=== PATIENT | male | born 1940 | race Caucasian/White ===

== ENCOUNTER 2017-01-30 14:20 | Inpatient (IN) ==
--- NOTE | 2017-02-01 14:02 | Internal Med History&Physical ---
Date of Encounter: 02/01/17 Time of Encounter: 13:52 Assessment and Plan (1) History of total hip replacement Current visit: Yes Status: Acute Patient is here for rehabilitation status post total hip Qualifiers: Laterality: right Qualified Code(s): Z96.641 - Presence of right artificial hip joint (2) HTN (hypertension) Current visit: No Status: Chronic Blood pressure is well controlled Qualifiers: Hypertension type: essential hypertension Qualified Code(s): I10 - Essential (primary) hypertension (3) Hyperlipidemia Current visit: No Status: Chronic By history Qualifiers: Hyperlipidemia type: unspecified Qualified Code(s): E78.5 - Hyperlipidemia , unspecified (4) Arthritis of hip Current visit: No Status: Acute Patient had arthritis in the hips which is the reason for the surgical repair (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 Admitted From: Hospital to Hospital Transfer Plans for Post Hospital Care: Home History of present illness: Mr. Zamudio is a 76 year old male Patient is here for postop care and rehabilitation after total hip replacement Past Med Surg Social Fam HX - Past Medical History Medical history: arthritis, hyperlipidemia, hypertension, other Psychiatric history: no psych history - Past Surgical History Surgical History: other - Social History Smoking Status: Never smoker Smokeless Tobacco Status: No Alcohol use: none Drug use: none Internal Medicine - H&P: Meds Atenolol [Tenormin] 100 mg PO DAILY 09/20/15 [History] Finasteride [Proscar] 5 mg PO HS 09/20/15 [History] Tamsulosin [Flomax] 0.4 mg PO HS 09/20/15 [History] Aspirin Enteric Coated [Aspirin EC] 325 mg PO DAILY #21 tablet. 01/28/17 [Rx] OxyCODONE Immed Rel [Roxicodone 5 MG] 5 mg PO Q6HR PRN 02/01/17 [History] OxyCODONE Immed Rel [Roxicodone 5 MG] 10 mg PO Q6HR PRN 02/01/17 [History] Allergies atorvastatin Adverse Reaction (Mild, Verified 01/29/17 08:35) Muscle Pain All Systems PM: A 10-system review of systems was performed and is negative for pertinent findings except as documented above in the HPI. - Head Head exam: Present: atraumatic, normal inspection ( ), normocephalic - Neck Neck exam general surgery: Present: supple, trachea midline. Absent: lymphadenopathy - Respiratory Respiratory exam: Present: CTAB. Absent: accessory muscle use, rales, rhonchi, wheezes - Cardiovascular Cardiovascular exam: Present: RRR, +S1, +S2. Absent: diastolic murmur, gallop, rubs, systolic murmur Internal Med - H&P Results - Labs Labs: Pending
[2017-02-01] MEDS ORDERED: Aspirin Enteric Coated 81 MG Tablet PO SCH (14:30)
[2017-02-01] MEDS: *HR* OxyCODONE Immed Rel 5 MG TABLET PO PRN (16:39)
[2017-02-01] MEDS: Finasteride 5 MG TABLET PO SCH (21:42)
[2017-02-02] MEDS: *HR* OxyCODONE Immed Rel 5 MG TABLET PO PRN ×4 (00:03→22:26)
[2017-02-02] MEDS: Aspirin 325 MG TABLET PO SCH ×2 (08:58→12:51)
[2017-02-02] MEDS: Ondansetron ODT 4 MG TAB.RAPDIS SL PRN ×2 (12:14→22:26)
[2017-02-02] MEDS: Finasteride 5 MG TABLET PO SCH (22:26)
[2017-02-02] MEDS: MOM Conc 10 ML UD.LIQ PO SCH (22:26)
--- NOTE | 2017-02-02 22:53 | Internal Med Progress Note ---
Date of Encounter: 02/02/17 Time of Encounter: 22:51 - Assessment and plan (1) History of total hip replacement Current Visit: Yes Status: Acute Assessment and plan: We will continue to monitor pain. PT OT working on gait, transfer, endurance balance. Lovenox for DVT. Qualifiers: Laterality: right Qualified Code(s): Z96.641 - Presence of right artificial hip joint (2) Insomnia Current Visit: Yes Status: Acute Assessment and plan: Well order medications as needed Qualifiers: Insomnia type: unspecified Qualified Code(s): G47.00 - Insomnia, unspecified (3) Constipation Current Visit: Yes Status: Acute Assessment and plan: We will try Mag citratetreatment Qualifiers: Constipation type: unspecified constipation type Qualified Code(s): K59.00 - Constipation, unspecified - Time Spent With Patient less than 15 minutes - Subjective Interval history: Complains of increase right hip pain postop. Oxycodone was increased. Complains of nausea. Complains of constipation. He also complains of insomnia. - Constitutional Vitals: Temp Pulse Resp BP Pulse Ox 98.1 F 57 16 124/65 97 02/02/17 19:00 02/02/17 19:00 02/02/17 19:00 02/02/17 19:00 02/02/17 19:00 General appearance: Present: A&O X 3, pleasant, no acute distress - Respiratory Respiratory exam: Present: CTAB. Absent: accessory muscle use, rales, rhonchi, wheezes - Cardiovascular Cardiovascular exam: Present: RRR, +S1, +S2. Absent: diastolic murmur, gallop, rubs, systolic murmur - GI/Abdominal GI/Abdominal exam: Present: normal bowel sounds, soft, no peritoneal signs. Absent: distended, tenderness - Expanded Lower Extremities Exam Hip exam: Present: erythema, swelling, tenderness - Incison Incision: Present: clean and dry - Neurological Exam Neurological exam: Present: CN II-XII intact, oriented X3, no focal deficits. Absent: pronater drift, facial droop, speech deficit Consult Discharge Plan - Plan Referrals: Juan Hdez MD [Primary Care Provider] -
[2017-02-03] MEDS: Aspirin 325 MG TABLET PO SCH (08:31)
[2017-02-03] MEDS: *HR* OxyCODONE Immed Rel 5 MG TABLET PO PRN ×3 (08:40→21:50)
[2017-02-03] MEDS: MOM Conc 10 ML UD.LIQ PO SCH (15:24)
[2017-02-03] MEDS: Finasteride 5 MG TABLET PO SCH (21:49)
[2017-02-04] MEDS: Aspirin 325 MG TABLET PO SCH (09:11)
[2017-02-04] MEDS: *HR* OxyCODONE Immed Rel 5 MG TABLET PO PRN ×2 (09:12→22:43)
[2017-02-04] MEDS: MOM Conc 10 ML UD.LIQ PO SCH (09:13)
--- NOTE | 2017-02-04 13:35 | Internal Med Progress Note ---
Date of Encounter: 02/04/17 Time of Encounter: 13:32 - Assessment and plan (1) History of total hip replacement Current Visit: Yes Status: Acute Assessment and plan: We will continue to monitor pain. PT OT working on gait, transfer, endurance balance. Lovenox for DVT. Qualifiers: Laterality: right Qualified Code(s): Z96.641 - Presence of right artificial hip joint (2) Insomnia Current Visit: Yes Status: Acute Assessment and plan: Improved with something for sleep Qualifiers: Insomnia type: unspecified Qualified Code(s): G47.00 - Insomnia, unspecified (3) Constipation Current Visit: Yes Status: Acute Assessment and plan: We will try Mag citratetreatment Qualifiers: Constipation type: unspecified constipation type Qualified Code(s): K59.00 - Constipation, unspecified - Time Spent With Patient less than 15 minutes - Subjective Interval history: Given laxative for constipation yesterday. Having small amount of liquid stool. Patient does not like any solid food but cookies. He states food does not taste good Complains of increase right hip pain postop. Oxycodone was increased. Complains of nausea. Complains of constipation. He also complains of insomnia. - Constitutional Vitals: Temp Pulse Resp BP Pulse Ox 97.7 F 54 18 131/62 95 02/04/17 07:22 02/04/17 07:22 02/04/17 07:22 02/04/17 07:22 02/04/17 07:22 General appearance: Present: A&O X 3, pleasant, no acute distress - Respiratory Respiratory exam: Present: CTAB. Absent: accessory muscle use, rales, rhonchi, wheezes - Cardiovascular Cardiovascular exam: Present: RRR, +S1, +S2. Absent: diastolic murmur, gallop, rubs, systolic murmur - GI/Abdominal GI/Abdominal exam: Present: normal bowel sounds, soft, no peritoneal signs. Absent: distended, tenderness - Expanded Lower Extremities Exam Hip exam: Present: erythema, swelling, tenderness Consult Discharge Plan - Plan Referrals: Juan Hdez MD [Primary Care Provider] -
[2017-02-04] MEDS: Finasteride 5 MG TABLET PO SCH (22:43)
[2017-02-05 07:14] LABS: Basophils % 0.4 %; Eosinophils # 0.6 K/mcL (0.0-0.6); Eosinophils % 6.2 %; Hematocrit 26.7 % (37.5-50.1); Hemoglobin 8.9 g/dL (12.9-16.9); Immature Granulocytes % 3.7 % (0-4); Lymphocytes # 1.1 K/mcL (0.6-4.6); Lymphocytes % 11.5 %; Mean Corpuscular HGB Conc 33.3 g/dL (31.6-35.5); Mean Corpuscular Hemoglobin 30.3 pg (28.0-33.3); Mean Corpuscular Volume 90.8 fL (83.0-100.0); Mean Platelet Volume 9.6 fL (9.4-12.4); Monocytes % 10.4 %; Neutrophils # 6.2 K/mcL (1.6-8.9); Platelet Count 177 K/mcL (140-400); Red Blood Count 2.94 M/mcL (4.19-5.50); Red Cell Distribution Width 13.8 % (11.5-14.5); Segmented Neutrophils % 67.8 %
[2017-02-05 07:19] LABS: BUN/Creatinine Ratio 24 (6-26); Blood Urea Nitrogen 16 mg/dL (8-26); Calcium 8.1 mg/dL (8.6-10.8); Carbon Dioxide 29 mEq/L (19-29); Chloride 101 mEq/L (98-109); Glucose 89 mg/dL (70-99); Osmolality,Calculated 291 (280-300); Potassium 3.6 mEq/L (3.5-4.5); Sodium 140 mEq/L (136-145); eGFR For African Americans > 60 (> 60); eGFR For Non-African Americans > 60 (> 60)
[2017-02-05] MEDS: *HR* OxyCODONE Immed Rel 5 MG TABLET PO PRN ×3 (08:03→22:51)
[2017-02-05] MEDS: MOM Conc 10 ML UD.LIQ PO SCH (08:04)
[2017-02-05] MEDS: Aspirin 325 MG TABLET PO SCH (08:04)
--- NOTE | 2017-02-05 15:14 | Internal Med Progress Note ---
Date of Encounter: 02/05/17 Time of Encounter: 15:12 - Assessment and plan (1) History of total hip replacement Current Visit: Yes Status: Acute Assessment and plan: Patient has had a total hip replacement for degenerative osteoarthritis Qualifiers: Laterality: right Qualified Code(s): Z96.641 - Presence of right artificial hip joint (2) HTN (hypertension) Current Visit: No Status: Chronic Assessment and plan: Hypertension blood pressure is well controlled Qualifiers: Hypertension type: essential hypertension Qualified Code(s): I10 - Essential (primary) hypertension (3) Hyperlipidemia Current Visit: No Status: Chronic Assessment and plan: Noted Qualifiers: Hyperlipidemia type: unspecified Qualified Code(s): E78.5 - Hyperlipidemia , unspecified (4) Arthritis of hip Current Visit: No Status: Acute Assessment and plan: The reason for the surgery (5) Post-polio syndrome Current Visit: No Status: Chronic Assessment and plan: 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 He states by the time once he is healed and noticing occurs. We have encouraged him verbally and is working with a therapist. States pain control is very adequate - Constitutional Vitals: Temp Pulse Resp BP Pulse Ox 97.4 F L 59 16 115/64 98 02/05/17 06:56 02/05/17 06:56 02/05/17 06:56 02/05/17 06:56 02/05/17 06:56 General appearance: Present: A&O X 3, pleasant, no acute distress - Head Head exam: Present: atraumatic, normal inspection, normocephalic - Neck Neck exam general surgery: Present: supple, trachea midline. Absent: lymphadenopathy - Respiratory Respiratory exam: Present: CTAB. Absent: accessory muscle use, rales, rhonchi, wheezes - Cardiovascular Cardiovascular exam: Present: RRR, +S1, +S2. Absent: diastolic murmur, gallop, rubs, systolic murmur - GI/Abdominal GI/Abdominal exam: Present: normal bowel sounds, soft, no peritoneal signs. Absent: distended, tenderness Internal Medicine: Result - Labs CBC & Chem 7: 02/05/17 06:50 02/05/17 06:50 Labs: Short CBC 02/05/17 Range/Units 06:50 WBC 9.2 (4.3-11.1) K/mcL Hgb 8.9 L (12.9-16.9) g/dL Hct 26.7 L (37.5-50.1) % Plt Count 177 (140-400) K/mcL Neutrophils # 6.2 (1.6-8.9) K/mcL BMP 02/05/17 06:50 Sodium 140 Potassium 3.6 Chloride 101 Carbon Dioxide 29 BUN 16 Creatinine 0.67 L Glucose 89 Calcium 8.1 L Lab is stable Consult Discharge Plan - Plan Referrals: Juan Hdez MD [Primary Care Provider] -
[2017-02-05] MEDS: Finasteride 5 MG TABLET PO SCH (22:51)
[2017-02-06] MEDS: *HR* OxyCODONE Immed Rel 5 MG TABLET PO PRN ×2 (05:19→13:13)
[2017-02-06] MEDS: Aspirin 325 MG TABLET PO SCH (08:57)
[2017-02-06] MEDS: MOM Conc 10 ML UD.LIQ PO SCH (08:58)
--- NOTE | 2017-02-06 14:07 | Internal Med Progress Note ---
Date of Encounter: 02/06/17 Time of Encounter: 14:04 - Assessment and plan (1) History of total hip replacement Current Visit: Yes Status: Acute Assessment and plan: Patient had total hip replacement which brought him in for rehabilitation Qualifiers: Laterality: right Qualified Code(s): Z96.641 - Presence of right artificial hip joint (2) HTN (hypertension) Current Visit: No Status: Chronic Assessment and plan: The pressures well controlled Qualifiers: Hypertension type: essential hypertension Qualified Code(s): I10 - Essential (primary) hypertension (3) Hyperlipidemia Current Visit: No Status: Chronic Assessment and plan: Noted Qualifiers: Hyperlipidemia type: unspecified Qualified Code(s): E78.5 - Hyperlipidemia , unspecified (4) Arthritis of hip Current Visit: No Status: Acute Assessment and plan: The reason for the total hip replacement. (5) Post-polio syndrome Current Visit: No Status: Chronic - Time Spent With Patient less than 15 minutes - Subjective Interval history: Patient seems slowed down by his high level of anxiety. Will try real low dose 0.25 Ativan during the day. Patient reported nightmares falling and he is consumed by this and is extremely anxious. - Constitutional Vitals: Temp Pulse Resp BP Pulse Ox 97.7 F 60 15 134/56 97 02/06/17 06:00 02/06/17 06:00 02/05/17 18:00 02/06/17 06:00 02/06/17 06:00 General appearance: Present: A&O X 3, pleasant, no acute distress - Head Head exam: Present: atraumatic, normal inspection, normocephalic - Neck Neck exam general surgery: Present: supple, trachea midline. Absent: lymphadenopathy - Respiratory Respiratory exam: Present: CTAB. Absent: accessory muscle use, rales, rhonchi, wheezes - Cardiovascular Cardiovascular exam: Present: RRR, +S1, +S2. Absent: diastolic murmur, gallop, rubs, systolic murmur Internal Medicine: Result - Labs CBC & Chem 7: 02/05/17 06:50 02/05/17 06:50 Labs: The lab looks good Consult Discharge Plan - Plan Referrals: Juan Hdez MD [Primary Care Provider] -
[2017-02-06] MEDS: Finasteride 5 MG TABLET PO SCH (20:30)
[2017-02-07] MEDS: *HR* LORazepam 0.5 MG TABLET PO PRN ×3 (00:01→22:35)
[2017-02-07] MEDS: *HR* OxyCODONE Immed Rel 5 MG TABLET PO PRN (08:52)
[2017-02-07] MEDS: Aspirin 325 MG TABLET PO SCH (08:53)
[2017-02-07] MEDS: MOM Conc 10 ML UD.LIQ PO SCH (09:00)
--- NOTE | 2017-02-07 14:59 | Internal Med Progress Note ---
Date of Encounter: 02/07/17 Time of Encounter: 14:57 - Assessment and plan (1) History of total hip replacement Current Visit: Yes Status: Acute Assessment and plan: Patient is here for hip replacement. Qualifiers: Laterality: right Qualified Code(s): Z96.641 - Presence of right artificial hip joint (2) HTN (hypertension) Current Visit: No Status: Chronic Assessment and plan: Blood pressures well controlled Qualifiers: Hypertension type: essential hypertension Qualified Code(s): I10 - Essential (primary) hypertension (3) Hyperlipidemia Current Visit: No Status: Chronic Assessment and plan: Noted Qualifiers: Hyperlipidemia type: unspecified Qualified Code(s): E78.5 - Hyperlipidemia , unspecified (4) Arthritis of hip Current Visit: No Status: Acute Assessment and plan: Reason for the hip replacement (5) Post-polio syndrome Current Visit: No Status: Chronic - Time Spent With Patient less than 15 minutes - Subjective Interval history: Mr. Zamudio might benefit from slowly increasing the Ativan. It is not made him sleepy up to this point and he is marginally improving each day working with the therapist - Constitutional Vitals: Temp Pulse Resp BP Pulse Ox 98.4 F 62 18 113/58 97 02/07/17 06:57 02/07/17 06:57 02/07/17 06:57 02/07/17 06:57 02/07/17 06:57 General appearance: Present: A&O X 3, pleasant, no acute distress - Head Head exam: Present: atraumatic, normal inspection, normocephalic - Neck Neck exam general surgery: Present: supple, trachea midline. Absent: lymphadenopathy - Respiratory Respiratory exam: Present: CTAB. Absent: accessory muscle use, rales, rhonchi, wheezes - Cardiovascular Cardiovascular exam: Present: RRR, +S1, +S2. Absent: diastolic murmur, gallop, rubs, systolic murmur Internal Medicine: Result - Labs CBC & Chem 7: 02/05/17 06:50 02/05/17 06:50 Labs: Lab is stable Consult Discharge Plan - Plan Referrals: Juan Hdez MD [Primary Care Provider] -
--- NOTE | 2017-02-07 15:26 | Psychological Evaluation ---
Date of Encounter: 02/07/17 Time of Encounter: 11:30 History of Present Illness History of present illness: Mr. Zamudio is a 76 year old male admitted to [facility] following a right total hip replacement due to osteoarthritis. Mr. Zamudio reported that he had been having problems with significant pain in his hip and his leg would give out on him. He was seen on this date to assess his current cognitive and emotional functioning. Past Medical History Medical history: Significant for post-polio syndrome, HTN, hyperlipidemia and osteoarthritis. He reported that he contracted polio at age 8 and fought all his life to overcome his physical limitations/challenges. - Psychiatric History Additional Psychiatric History: There is no history of psychiatric hospitalization or mental health counseling. There is no history of treatment for depression or anxiety. In addition, there is no known family history of psychiatric or mental health conditions. Home Medications and Allergies Atenolol [Tenormin] 100 mg PO DAILY 09/20/15 [History] Finasteride [Proscar] 5 mg PO HS 09/20/15 [History] Tamsulosin [Flomax] 0.4 mg PO HS 09/20/15 [History] Aspirin Enteric Coated [Aspirin EC] 325 mg PO DAILY #21 tablet. 01/28/17 [Rx] OxyCODONE Immed Rel [Roxicodone 5 MG] 5 mg PO Q6HR PRN 02/01/17 [History] OxyCODONE Immed Rel [Roxicodone 5 MG] 10 mg PO Q6HR PRN 02/01/17 [History] Allergies atorvastatin Adverse Reaction (Mild, Verified 01/29/17 08:35) Muscle Pain Social History - Social History Social History: Mr. Zamudio has been for 57 years. They have 3 adult sons. Mr. Zamudio retired from [employer] where he was employed for over 27 years. He had to retire due to increased pain and physical limitations related his post-polio syndrome. 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 He also reported that he would go down to the local [id number] daily to see friends. 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 His social support system consists of his three sons. - Tobacco Use Smoking Status: Never smoker - Alcohol Use Alcohol Use: none Cognitive/Emotional Assessment - Cognitive Ability Additional Findings: Mr. Zamudio was alert, attentive and fully oriented. Able to do simple mental arithmetic with ease. Speech was fluent, clear and effective. Thought processes were coherent but he was noted to be tangential and had to be redirected. On a measure of delayed recall, he performed within the moderate- severely impaired range. He exhibited significant problems with storage and retrieval of new information. His performance was only minimally improved with multiple choice recognition cues. Mr. Zamudio did not appear aware of his cognitive strengths and deficits. - Emotional Status Additional Findings: Mr. Zamudio was pleasant, friendly and cooperative. He described his current mood as "pretty darn good" but acknowledged that he had not been feeling well earlier in the week due to increased pain. He is trying to manage his pain by staying on schedule with his pain medications. 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 Zamudio is exhibiting significant deficits in delayed recall. He will benefit from having information repeated and provided in multiple formats (eg. verbal, written). Will provide emotional supportive therapy and monitor his mood/progress. Procedures - Session Time Session Start Time: 11:30 Session Stop Time: 12:00
[2017-02-07] MEDS: Finasteride 5 MG TABLET PO SCH (22:35)
[2017-02-08] MEDS: MOM Conc 10 ML UD.LIQ PO SCH (06:28)
[2017-02-08] MEDS: *HR* OxyCODONE Immed Rel 5 MG TABLET PO PRN ×2 (06:31→20:35)
[2017-02-08] MEDS: Aspirin 325 MG TABLET PO SCH (06:31)
--- NOTE | 2017-02-08 15:04 | Internal Med Progress Note ---
Date of Encounter: 02/08/17 Time of Encounter: 15:02 - Assessment and plan (1) History of total hip replacement Current Visit: Yes Status: Acute Assessment and plan: Patient had a total hip replacement for a leg Qualifiers: Laterality: right Qualified Code(s): Z96.641 - Presence of right artificial hip joint (2) HTN (hypertension) Current Visit: No Status: Chronic Assessment and plan: Blood pressure well controlled Qualifiers: Hypertension type: essential hypertension Qualified Code(s): I10 - Essential (primary) hypertension (3) Hyperlipidemia Current Visit: No Status: Chronic Qualifiers: Hyperlipidemia type: unspecified Qualified Code(s): E78.5 - Hyperlipidemia , unspecified (4) Arthritis of hip Current Visit: No Status: Acute Assessment and plan: Reason for the surgery (5) Post-polio syndrome Current Visit: No Status: Chronic - Time Spent With Patient less than 15 minutes - Subjective Interval history: Home of the Ativan dinner to rule out patient's much better mood today smiling and not nears acting depressed are negative - Constitutional Vitals: Temp Pulse Resp BP Pulse Ox 98.8 F 84 18 152/64 96 02/08/17 07:02 02/08/17 07:02 02/08/17 07:02 02/08/17 07:02 02/08/17 07:02 General appearance: Present: A&O X 3, pleasant, no acute distress - Head Head exam: Present: atraumatic, normal inspection, normocephalic - Neck Neck exam general surgery: Present: supple, trachea midline. Absent: lymphadenopathy - Respiratory Respiratory exam: Present: CTAB. Absent: accessory muscle use, rales, rhonchi, wheezes - Cardiovascular Cardiovascular exam: Present: RRR, +S1, +S2. Absent: diastolic murmur, gallop, rubs, systolic murmur Internal Medicine: Result - Labs CBC & Chem 7: 02/05/17 06:50 02/05/17 06:50 Labs: Stable Consult Discharge Plan - Plan Referrals: Juan Hdez MD [Primary Care Provider] -
[2017-02-08] MEDS: Finasteride 5 MG TABLET PO SCH (20:34)
[2017-02-09] MEDS: *HR* OxyCODONE Immed Rel 5 MG TABLET PO PRN ×2 (06:45→18:43)
[2017-02-09] MEDS: Aspirin 325 MG TABLET PO SCH (08:23)
[2017-02-09] MEDS: MOM Conc 10 ML UD.LIQ PO SCH (08:24)
--- NOTE | 2017-02-09 14:27 | Internal Med Progress Note ---
Date of Encounter: 02/09/17 Time of Encounter: 14:25 - Assessment and plan (1) History of total hip replacement Current Visit: Yes Status: Acute Assessment and plan: The patient had a total R hip replacement due to OA Qualifiers: Laterality: right Qualified Code(s): Z96.641 - Presence of right artificial hip joint (2) HTN (hypertension) Current Visit: No Status: Chronic Assessment and plan: Blood pressure is well controlled Qualifiers: Hypertension type: essential hypertension Qualified Code(s): I10 - Essential (primary) hypertension (3) Hyperlipidemia Current Visit: No Status: Chronic Assessment and plan: Noted Qualifiers: Hyperlipidemia type: unspecified Qualified Code(s): E78.5 - Hyperlipidemia , unspecified (4) Arthritis of hip Current Visit: No Status: Acute Assessment and plan: Reason for surgery (5) Post-polio syndrome Current Visit: No Status: Chronic - Time Spent With Patient less than 15 minutes - Subjective Interval history: Patient still continues to be in a good mood smiling and joking he has really improved - Constitutional Vitals: Temp Pulse Resp BP Pulse Ox 97.9 F 71 18 116/58 97 02/09/17 06:34 02/09/17 06:34 02/09/17 06:34 02/09/17 06:34 02/09/17 06:34 General appearance: Present: A&O X 3, pleasant, no acute distress - Head Head exam: Present: atraumatic, normocephalic - Neck Neck exam general surgery: Present: supple, trachea midline. Absent: lymphadenopathy - Respiratory Respiratory exam: Present: CTAB. Absent: accessory muscle use, rales, rhonchi, wheezes - Cardiovascular Cardiovascular exam: Present: RRR, +S1, +S2. Absent: diastolic murmur, gallop, rubs, systolic murmur Internal Medicine: Result - Labs CBC & Chem 7: 02/05/17 06:50 02/05/17 06:50 Labs: Lab is stable Consult Discharge Plan - Plan Referrals: Juan Hdez MD [Primary Care Provider] -
[2017-02-09] MEDS: Finasteride 5 MG TABLET PO SCH (20:33)
[2017-02-10] MEDS: *HR* OxyCODONE Immed Rel 5 MG TABLET PO PRN ×2 (06:40→17:35)
--- NOTE | 2017-02-10 09:27 | Internal Med Progress Note ---
Date of Encounter: 02/10/17 Time of Encounter: 09:25 - Assessment and plan (1) History of total hip replacement Current Visit: Yes Status: Acute Assessment and plan: PT OT working on improving gait, transfer and balance. 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 Report states significant improvement Qualifiers: Pressure ulcer location: buttock Pressure ulcer stage: stage 3 Laterality : unspecified laterality Qualified Code(s): L89.303 - Pressure ulcer of unspecified buttock, stage 3 - Time Spent With Patient less than 15 minutes - Subjective Interval history: Feels so much better. No shortness of breath. No chest pain. Strength improving. No shortness of breath. No chest pain - Constitutional Vitals: Temp Pulse Resp BP Pulse Ox 98.3 F 73 18 123/53 96 02/10/17 06:56 02/10/17 06:56 02/10/17 06:56 02/10/17 06:56 02/10/17 06:56 General appearance: Present: A&O X 3, pleasant, no acute distress - Respiratory Respiratory exam: Present: CTAB. Absent: accessory muscle use, rales, rhonchi, wheezes - Cardiovascular Cardiovascular exam: Present: RRR, +S1, +S2. Absent: diastolic murmur, gallop, rubs, systolic murmur - GI/Abdominal GI/Abdominal exam: Present: normal bowel sounds, soft, no peritoneal signs. Absent: distended, tenderness Internal Medicine: Result - Labs CBC & Chem 7: 02/05/17 06:50 02/05/17 06:50 Consult Discharge Plan - Plan Referrals: Juan Hdez MD [Primary Care Provider] -
[2017-02-10] MEDS: MOM Conc 10 ML UD.LIQ PO SCH (09:49)
[2017-02-10] MEDS: Aspirin 325 MG TABLET PO SCH (09:49)
[2017-02-10] MEDS: Finasteride 5 MG TABLET PO SCH (21:23)
[2017-02-11] MEDS: *HR* OxyCODONE Immed Rel 5 MG TABLET PO PRN ×4 (03:39→22:49)
[2017-02-11] MEDS: MOM Conc 10 ML UD.LIQ PO SCH (09:08)
[2017-02-11] MEDS: Aspirin 325 MG TABLET PO SCH (09:08)
--- NOTE | 2017-02-11 10:50 | Internal Med Progress Note ---
Date of Encounter: 02/11/17 Time of Encounter: 10:48 - Assessment and plan (1) History of total hip replacement Current Visit: Yes Status: Acute Assessment and plan: Patient's turn the corner I believe in's and a better mood having less pain and is more cooperative. His bottom was little role and since he is moving more this could help it also will have wound care see him Qualifiers: Laterality: right Qualified Code(s): Z96.641 - Presence of right artificial hip joint (2) HTN (hypertension) Current Visit: No Status: Chronic Assessment and plan: Impression well-controlled Qualifiers: Hypertension type: essential hypertension Qualified Code(s): I10 - Essential (primary) hypertension (3) Hyperlipidemia Current Visit: No Status: Chronic Assessment and plan: Noted Qualifiers: Hyperlipidemia type: unspecified Qualified Code(s): E78.5 - Hyperlipidemia , unspecified (4) Arthritis of hip Current Visit: No Status: Acute Assessment and plan: Reason for his surgery (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 Absent: accessory muscle use, rales, rhonchi, wheezes - Cardiovascular Cardiovascular exam: Present: RRR, +S1, +S2. Absent: diastolic murmur, gallop, rubs, systolic murmur Internal Medicine: Result - Labs CBC & Chem 7: 02/05/17 06:50 02/05/17 06:50 Labs: Lab is stable Consult Discharge Plan - Plan Referrals: Juan Hdez MD [Primary Care Provider] -
[2017-02-11] MEDS: Finasteride 5 MG TABLET PO SCH (20:55)
[2017-02-12 06:13] LABS: Basophils # 0.1 K/mcL (0.0-0.2); Basophils % 0.6 %; Eosinophils # 0.4 K/mcL (0.0-0.6); Eosinophils % 5.4 %; Hematocrit 25.7 % (37.5-50.1); Hemoglobin 8.2 g/dL (12.9-16.9); Lymphocytes # 0.9 K/mcL (0.6-4.6); Lymphocytes % 11.1 %; Mean Corpuscular HGB Conc 31.9 g/dL (31.6-35.5); Mean Corpuscular Volume 94.1 fL (83.0-100.0); Mean Platelet Volume 9.8 fL (9.4-12.4); Monocytes # 0.7 K/mcL (0.0-1.3); Monocytes % 9.3 %; Neutrophils # 5.7 K/mcL (1.6-8.9); Platelet Count 216 K/mcL (140-400); Red Blood Count 2.73 M/mcL (4.19-5.50); Red Cell Distribution Width 14.8 % (11.5-14.5); Segmented Neutrophils % 71.6 %
[2017-02-12 06:19] LABS: BUN/Creatinine Ratio 19 (6-26); Blood Urea Nitrogen 12 mg/dL (8-26); Calcium 8.3 mg/dL (8.6-10.8); Carbon Dioxide 26 mEq/L (19-29); Chloride 104 mEq/L (98-109); Glucose 83 mg/dL (70-99); Osmolality,Calculated 285 (280-300); Potassium 4.7 mEq/L (3.5-4.5); Sodium 138 mEq/L (136-145); eGFR For African Americans > 60 (> 60); eGFR For Non-African Americans > 60 (> 60)
[2017-02-12] MEDS: MOM Conc 10 ML UD.LIQ PO SCH (07:40)
[2017-02-12] MEDS: *HR* OxyCODONE Immed Rel 5 MG TABLET PO PRN ×3 (07:46→20:17)
[2017-02-12] MEDS: Aspirin 325 MG TABLET PO SCH (07:46)
--- NOTE | 2017-02-12 17:35 | Internal Med Progress Note ---
Date of Encounter: 02/12/17 Time of Encounter: 17:33 - Assessment and plan (1) History of total hip replacement Current Visit: Yes Status: Acute Assessment and plan: Patient's here for his total hip replacement. 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 Overuse. - Time Spent With Patient less than 15 minutes - Subjective Interval history: Patient senna improved condition. His attitude is improved and is working well with the state - Constitutional Vitals: Temp Pulse Resp BP Pulse Ox 97.9 F 66 17 123/64 98 02/12/17 07:36 02/12/17 07:36 02/12/17 07:36 02/12/17 07:36 02/12/17 07:36 General appearance: Present: A&O X 3, pleasant, no acute distress - Head Head exam: Present: atraumatic, normal inspection, normocephalic - Respiratory Respiratory exam: Present: CTAB. Absent: accessory muscle use, rales, rhonchi, wheezes - Cardiovascular Cardiovascular exam: Present: RRR, +S1, +S2. Absent: diastolic murmur, gallop, rubs, systolic murmur Internal Medicine: Result - Labs CBC & Chem 7: 02/12/17 05:10 02/12/17 05:10 Labs: Short CBC 02/12/17 Range/Units 05:10 WBC 8.0 (4.3-11.1) K/mcL Hgb 8.2 L (12.9-16.9) g/dL Hct 25.7 L (37.5-50.1) % Plt Count 216 (140-400) K/mcL Neutrophils # 5.7 (1.6-8.9) K/mcL BMP 02/12/17 05:10 Sodium 138 Potassium 4.7 H Chloride 104 Carbon Dioxide 26 BUN 12 Creatinine 0.63 L Glucose 83 Calcium 8.3 L lab is stable Consult Discharge Plan - Plan Referrals: Juan Hdez MD [Primary Care Provider] -
[2017-02-12] MEDS: Finasteride 5 MG TABLET PO SCH (20:17)
[2017-02-13] MEDS: *HR* OxyCODONE Immed Rel 5 MG TABLET PO PRN ×2 (08:07→15:14)
[2017-02-13] MEDS: MOM Conc 10 ML UD.LIQ PO SCH (08:07)
[2017-02-13] MEDS: Aspirin 325 MG TABLET PO SCH (08:07)
--- NOTE | 2017-02-13 13:25 | Internal Med Progress Note ---
Date of Encounter: 02/13/17 Time of Encounter: 13:23 - Assessment and plan (1) History of total hip replacement Current Visit: Yes Status: Acute Assessment and plan: Patient's working with the staff is thankful for what they are doing is much better added to smiling and feels better overall Qualifiers: Laterality: right Qualified Code(s): Z96.641 - Presence of right artificial hip joint (2) HTN (hypertension) Current Visit: No Status: Chronic Assessment and plan: Blood pressure well controlled Qualifiers: Hypertension type: essential hypertension Qualified Code(s): I10 - Essential (primary) hypertension (3) Hyperlipidemia Current Visit: No Status: Chronic Qualifiers: Hyperlipidemia type: unspecified Qualified Code(s): E78.5 - Hyperlipidemia , unspecified (4) Arthritis of hip Current Visit: No Status: Acute Assessment and plan: Reason for surgery (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 His attitude is improved and is working well with the staff. - Constitutional Vitals: Temp Pulse Resp BP Pulse Ox 98.1 F 62 16 121/65 99 02/13/17 06:00 02/13/17 06:00 02/13/17 06:00 02/13/17 06:00 02/13/17 06:00 General appearance: Present: A&O X 3, pleasant, no acute distress - Head Head exam: Present: atraumatic, normal inspection, normocephalic - Neck Neck exam general surgery: Present: supple, trachea midline. Absent: lymphadenopathy - Respiratory Respiratory exam: Present: CTAB. Absent: accessory muscle use, rales, rhonchi, wheezes - Cardiovascular Cardiovascular exam: Present: RRR, +S1, +S2. Absent: diastolic murmur, gallop, rubs, systolic murmur Internal Medicine: Result - Labs CBC & Chem 7: 02/12/17 05:10 02/12/17 05:10 Labs: Lab is basically stable Consult Discharge Plan - Plan Referrals: Juan Hdez MD [Primary Care Provider] -
[2017-02-13] MEDS: Finasteride 5 MG TABLET PO SCH (19:56)
[2017-02-13] MEDS: *HR* LORazepam 0.5 MG TABLET PO PRN (19:56)
[2017-02-14] MEDS: Aspirin 325 MG TABLET PO SCH (07:52)
[2017-02-14] MEDS: *HR* OxyCODONE Immed Rel 5 MG TABLET PO PRN ×2 (07:53→18:36)
[2017-02-14] MEDS: MOM Conc 10 ML UD.LIQ PO SCH (07:54)
--- NOTE | 2017-02-14 14:25 | Internal Med Progress Note ---
Date of Encounter: 02/14/17 Time of Encounter: 14:14 - Assessment and plan (1) History of total hip replacement Current Visit: Yes Status: Acute Assessment and plan: Patient is here for total hip replacement worked with therapy. His attitude is improving much less depressed Qualifiers: Laterality: right Qualified Code(s): Z96.641 - Presence of right artificial hip joint (2) HTN (hypertension) Current Visit: No Status: Chronic Assessment and plan: The pressure well controlled Qualifiers: Hypertension type: essential hypertension Qualified Code(s): I10 - Essential (primary) hypertension (3) Hyperlipidemia Current Visit: No Status: Chronic Assessment and plan: Noted Qualifiers: Hyperlipidemia type: unspecified Qualified Code(s): E78.5 - Hyperlipidemia , unspecified (4) Arthritis of hip Current Visit: No Status: Acute Assessment and plan: Reason for total hip replacement (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 - Time Spent With Patient less than 15 minutes - Subjective Interval history: Patient improved condition. His attitude is improved and is working well with the staff. - Constitutional Vitals: Temp Pulse Resp BP Pulse Ox 98.2 F 72 18 135/74 95 02/14/17 07:13 02/14/17 07:13 02/14/17 07:13 02/14/17 07:13 02/14/17 07:13 General appearance: Present: A&O X 3, pleasant, no acute distress - Head Head exam: Present: atraumatic, normal inspection, normocephalic - Neck Neck exam general surgery: Present: supple, trachea midline. Absent: lymphadenopathy - Respiratory Respiratory exam: Present: CTAB. Absent: accessory muscle use, rales, rhonchi, wheezes - Cardiovascular Cardiovascular exam: Present: RRR, +S1, +S2. Absent: diastolic murmur, gallop, rubs, systolic murmur Internal Medicine: Result - Labs CBC & Chem 7: 02/12/17 05:10 02/12/17 05:10 Labs: Lab is stable Consult Discharge Plan - Plan Referrals: Juan Hdez MD [Primary Care Provider] -
[2017-02-14] MEDS: *HR* LORazepam 0.5 MG TABLET PO PRN (22:12)
[2017-02-14] MEDS: Finasteride 5 MG TABLET PO SCH (22:13)
[2017-02-15] MEDS: *HR* OxyCODONE Immed Rel 5 MG TABLET PO PRN ×2 (08:34→20:40)
[2017-02-15] MEDS: Aspirin 325 MG TABLET PO SCH (08:35)
[2017-02-15] MEDS: MOM Conc 10 ML UD.LIQ PO SCH (08:36)
[2017-02-15] MEDS: *HR* LORazepam 0.5 MG TABLET PO PRN (11:32)
--- NOTE | 2017-02-15 15:18 | Internal Med Progress Note ---
Date of Encounter: 02/15/17 Time of Encounter: 15:16 - Assessment and plan (1) History of total hip replacement Current Visit: Yes Status: Acute Assessment and plan: This is due to osteoarthritis. Qualifiers: Laterality: right Qualified Code(s): Z96.641 - Presence of right artificial hip joint (2) HTN (hypertension) Current Visit: No Status: Chronic Assessment and plan: Blood pressure is well controlled Qualifiers: Hypertension type: essential hypertension Qualified Code(s): I10 - Essential (primary) hypertension (3) Hyperlipidemia Current Visit: No Status: Chronic Assessment and plan: Noted Qualifiers: Hyperlipidemia type: unspecified Qualified Code(s): E78.5 - Hyperlipidemia , unspecified (4) Arthritis of hip Current Visit: No Status: Acute Assessment and plan: Reason for the hip surgery (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 Working well with the therapist - Constitutional Vitals: Temp Pulse Resp BP Pulse Ox 98.6 F 63 16 128/68 97 02/15/17 07:00 02/15/17 07:00 02/15/17 07:00 02/15/17 07:00 02/15/17 07:00 General appearance: Present: A&O X 3, pleasant, no acute distress - Head Head exam: Present: atraumatic, normal inspection, normocephalic - Neck Neck exam general surgery: Present: supple, trachea midline. Absent: lymphadenopathy - Respiratory Respiratory exam: Present: CTAB. Absent: accessory muscle use, rales, rhonchi, wheezes - Cardiovascular Cardiovascular exam: Present: RRR, +S1, +S2. Absent: diastolic murmur, gallop, rubs, systolic murmur Internal Medicine: Result - Labs CBC & Chem 7: 02/12/17 05:10 02/12/17 05:10 Labs: Labs stable Consult Discharge Plan - Plan Referrals: Juan Hdez MD [Primary Care Provider] -
[2017-02-15] MEDS: Finasteride 5 MG TABLET PO SCH (20:40)
[2017-02-16] MEDS: MOM Conc 10 ML UD.LIQ PO SCH (09:35)
[2017-02-16] MEDS: Aspirin 325 MG TABLET PO SCH (09:36)
[2017-02-16] MEDS: *HR* OxyCODONE Immed Rel 5 MG TABLET PO PRN ×3 (09:36→20:48)
--- NOTE | 2017-02-16 14:04 | Internal Med Progress Note ---
Date of Encounter: 02/16/17 Time of Encounter: 14:02 - Assessment and plan (1) History of total hip replacement Current Visit: Yes Status: Acute Assessment and plan: This is secondary to osteoarthritis. 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 Working well with the therapist. - Constitutional Vitals: Temp Pulse Resp BP Pulse Ox 97.8 F 60 17 133/76 96 02/16/17 07:00 02/16/17 07:00 02/16/17 07:00 02/16/17 07:00 02/16/17 07:00 General appearance: Present: A&O X 3, pleasant, no acute distress - Head Head exam: Present: atraumatic, normal inspection, normocephalic - Neck Neck exam general surgery: Present: supple, trachea midline. Absent: lymphadenopathy - Respiratory Respiratory exam: Present: CTAB. Absent: accessory muscle use, rales, rhonchi, wheezes - Cardiovascular Cardiovascular exam: Present: RRR, +S1, +S2. Absent: diastolic murmur, gallop, rubs, systolic murmur - GI/Abdominal GI/Abdominal exam: Present: normal bowel sounds, soft, no peritoneal signs. Absent: distended, tenderness Internal Medicine: Result - Labs CBC & Chem 7: 02/12/17 05:10 02/12/17 05:10 Labs: Lab estate Consult Discharge Plan - Plan Referrals: Juan Hdez MD [Primary Care Provider] -
--- NOTE | 2017-02-16 15:21 | Discharge Summary ---
Date of Encounter: 02/16/17 Time of Encounter: 15:19 - Discharge Diagnosis (1) History of total hip replacement Priority: Primary Status: Acute Comments: Patient will be transferred to [facility] to continue to get therapy. He is much improved Qualifiers: Laterality: right Qualified Code(s): Z96.641 - Presence of right artificial hip joint (2) HTN (hypertension) Priority: Secondary Status: Chronic Comments: Well-controlled Qualifiers: Hypertension type: essential hypertension Qualified Code(s): I10 - Essential (primary) hypertension (3) Hyperlipidemia Priority: Secondary Status: Chronic Qualifiers: Hyperlipidemia type: unspecified Qualified Code(s): E78.5 - Hyperlipidemia , unspecified (4) Arthritis of hip Priority: Primary Status: Acute Comments: Reason for the surgery (5) Post-polio syndrome Priority: Secondary Status: Chronic Comments: Satisfactory progress. - Discharge Medications Home Medications: Atenolol [Tenormin] 100 mg PO DAILY 09/20/15 [History] Finasteride [Proscar] 5 mg PO HS 09/20/15 [History] Tamsulosin [Flomax] 0.4 mg PO HS 09/20/15 [History] Aspirin Enteric Coated [Aspirin EC] 325 mg PO DAILY #21 tablet. 01/28/17 [Rx] OxyCODONE Immed Rel [Roxicodone 5 MG] 5 mg PO Q6HR PRN 02/01/17 [History] OxyCODONE Immed Rel [Roxicodone 5 MG] 10 mg PO Q6HR PRN 02/01/17 [History] Allergies/Adverse Reactions: Allergies atorvastatin Adverse Reaction (Mild, Verified 01/29/17 08:35) Muscle Pain Date of admission: 02/01/17 13:33 Primary care physician: Savi Voss Consults: 02/01/17 14:17 Consult to Occupational Therapy [CONS] Routine Comment: Evaluate, develop and implement POC Consult to Physical Therapy [CONS] Routine Comment: Evaluate, develop and implement POC Consult to Recreational Therapy [CONS] Routine Comment: Evaluate, develop and implement POC Consult to Public Relations Supervisor [CONS] Routine Reason for SW Consult: placement 02/06/17 15:48 Consult to Psychology [CONS] Routine Consulting Provider: Haritha Pierre Reason for Consult: THR Time Notified: 16:00 Call Completed: No 02/08/17 05:01 Consult to Wound Care [CONS] Routine Reason for Consult: stage 2 wound on coccyx that is not showing any signs of improvement. Call Completed: No Discharging clinician: Corby Barros Anticipated date of discharge: 02/16/17 - Patient Status Disposition: Transfer SNF Condition: Good Overall status at discharge: patient is not back to baseline - Discharge Instructions Follow Up With: Juan Hdez MD [Primary Care Provider] - - Diet and Activity Activity: ambulate only with your walker Diet: advance to your usual diet Interval History: Patient was brought in after total hip replacement. Initially was very depressed and a lot of pain in the area negative. But he is slowly felt better his pain is much improved and he is working well Hospital course: Mr. Zamudio is a 76 year old male Patient has done a good job. He is not independent at this point will go to the [facility]. - Time Spent with Patient Total time spent providing and/or coordinating discharge services: Less than 30 minutes - Constitutional Vitals: Temp Pulse Resp BP Pulse Ox 97.8 F 60 17 133/76 96 02/16/17 07:00 02/16/17 07:00 02/16/17 07:00 02/16/17 07:00 02/16/17 07:00 General appearance: Present: A&O X 3, pleasant, no acute distress - Head Head exam: Present: atraumatic, normal inspection, normocephalic - Neck Neck exam general surgery: Present: supple, trachea midline. Absent: lymphadenopathy - Respiratory Respiratory exam: Present: CTAB. Absent: accessory muscle use, rales, rhonchi, wheezes - Cardiovascular Cardiovascular exam: Present: RRR, +S1, +S2. Absent: diastolic murmur, gallop, rubs, systolic murmur - GI/Abdominal GI/Abdominal exam: Present: normal bowel sounds, soft, no peritoneal signs. Absent: distended, tenderness
--- NOTE | 2017-02-16 15:24 | Physician Discharge Referral ---
ExtendedCare Referral Info Transfer To: [facility] Provider in Charge after Transfer: PCP Institutional Level of Care: Skilled - Diagnosis (1) History of total hip replacement Priority: Primary Status: Acute (2) HTN (hypertension) Priority: Secondary Status: Chronic (3) Hyperlipidemia Priority: Secondary Status: Chronic (4) Arthritis of hip Priority: Primary Status: Acute (5) Post-polio syndrome Priority: Secondary Status: Chronic Expected Duration of Placement: 30 dqays Prognosis: Good - Transfer Medications Home Medications: Atenolol [Tenormin] 100 mg PO DAILY 09/20/15 [History] Finasteride [Proscar] 5 mg PO HS 09/20/15 [History] Tamsulosin [Flomax] 0.4 mg PO HS 09/20/15 [History] Aspirin Enteric Coated [Aspirin EC] 325 mg PO DAILY #21 tablet. 01/28/17 [Rx] OxyCODONE Immed Rel [Roxicodone 5 MG] 5 mg PO Q6HR PRN 02/01/17 [History] OxyCODONE Immed Rel [Roxicodone 5 MG] 10 mg PO Q6HR PRN 02/01/17 [History] Allergies/Adverse Reactions: Allergies atorvastatin Adverse Reaction (Mild, Verified 01/29/17 08:35) Muscle Pain - Respiratory Orders Smoking Cessation: Smoking cessation has been advised. For more information, call the [place] Tobacco Quit Line at 8-266-MSSSNOW. CERTIFICATION: I certify that the transfer of the above named patient to an Extended Care Facility is necessary for the continuing treatment of the diagnosis listed. The above information is true and accurate reflection of patient's current condition. Confidential - Redisclosure prohibited without a patient's written consent.
[2017-02-16] MEDS: Finasteride 5 MG TABLET PO SCH (20:47)
[2017-02-17 07:07] VITALS: BP 120/63
[2017-02-17] MEDS: Aspirin 325 MG TABLET PO SCH (09:16)
[2017-02-17] MEDS: *HR* OxyCODONE Immed Rel 5 MG TABLET PO PRN (09:16)
[2017-02-17] MEDS: MOM Conc 10 ML UD.LIQ PO SCH (09:17)
== END 2017-02-17 14:20 | DRG 559 ==
LOC: INPGRE 02-01 13:33
PROVIDERS: ADMIT Internal Medicine; ATTEND Internal Medicine